=== PATIENT | male | born 1980 | race Caucasian/White ===

== ENCOUNTER 2019-11-16 16:51 | Emergency (ER) | payer OTHER, SELFPAY ==
[2019-11-16 16:56] VITALS: BP 105/71; PULSE 78; RESP 16; TEMP 36.6; O2SAT 99
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
[2019-11-16] MEDS: Ibuprofen 600 MG TAB PO (17:29)
[2019-11-16] MEDS: Acetaminophen 325 MG TAB 650 MG PO (17:29)
--- NOTE | 2019-11-16 17:49 | DI.RAD_ITS ---
EXAM: XR CLAVICLE RT CLINICAL HISTORY: pain, fall, ttp AC TECHNIQUE: 2D digital imaging was performed. COMPARISON: No exams were available for comparison FINDINGS: BONES: No acute fracture is present. No bony destructive lesion is seen. JOINTS: Widening of the AC joint and coracoid clavicular distance. SOFT TISSUE: Normal IMPRESSION: Grade 3 acromioclavicular joint separation. DATA REPOSITORY: RADIATION DOSE DELIVERED:
--- NOTE | 2019-11-16 17:49 | DI.RAD_ITS ---
EXAM: XR SHOULDER RT COMPLETE 2+V CLINICAL HISTORY: pain, fall, ttp AC. TECHNIQUE: 2D digital imaging was performed. COMPARISON: No exams were available for comparison FINDINGS: BONES: No acute fracture is present. No bony destructive lesion is seen. JOINTS: There is mild widening of the acromioclavicular joint. There are mild degenerative changes o f the glenohumeral joint. SOFT TISSUE: Normal. IMPRESSION: Acromioclavicular joint separation. DATA REPOSITORY: RADIATION DOSE DELIVERED:
--- NOTE | 2019-11-16 18:00 | DI.VRAD_ITS ---
PROCEDURE INFORMATION: Exam: XR Right Clavicle, Complete Exam date and time: 11/16/2019 5:38 PM Age: 39 years old Clinical indication: Other: Pain, fall, ttp ac TECHNIQUE: Imaging protocol: XR Right clavicle complete. Any number of views. COMPARISON: No relevant prior studies available. FINDINGS: Elevation of the clavicle with respect to the acromion and also apparent widening between the coracoid and the clavicle suggesting a grade 3 AC joint separation. No acute fracture. Soft tissues unremarkable. Glenohumeral joint intact. IMPRESSION: Grade 3 AC joint separation. Dictated and Authenticated by: Steve Celeste MD. Ordering:SLADE Mccabe MD
--- NOTE | 2019-11-16 18:00 | DI.VRAD_ITS ---
PROCEDURE INFORMATION: Exam: XR Right Shoulder Exam date and time: 11/16/2019 5:35 PM Age: 39 years old Clinical indication: Other: Pain, fall, ttp ac TECHNIQUE: Imaging protocol: XR Right shoulder. Views: 2 or more views. COMPARISON: No relevant prior studies available. FINDINGS: AC joint separation as previously described on the clavicle examination. Glenohumeral joint intact. No dislocation of the glenohumeral joint. No acute fractures. IMPRESSION: Grade 3 AC joint separation. Dictated and Authenticated by: Steve Celeste MD. Ordering:SLADE Mccabe MD
[2019-11-16 18:18] VITALS: BP 107/69; PULSE 78; RESP 14; TEMP 36.7; O2SAT 99
== END 2019-11-16 18:30 | disposition home or self-care (01) ==
LOC: ER 18:26
PROVIDERS: Emergency Provider Student in an Organized Health Care Education/Training Program
DX: S43.121A Dislocation of right acromioclavicular joint, 100%-200% displacement, initial encounter (principal); V18.0XXA Pedal cycle driver injured in noncollision transport accident in nontraffic accident, initial encounter; Y93.55 Activity, bike riding
CPT/HCPCS: 23540; 73000; 73030; L3650